=== PATIENT | female | born 1990 | race Caucasian/White ===

== ENCOUNTER 2020-11-07 05:38 | Day surgery (SDC) | payer OTHER, SELFPAY ==
--- NOTE | 2020-10-31 09:28 | HP.PCM_ITS ---
History and Physical Date of Admission: 11/14/20 HPI: The patient is a 30 year old female presenting for pre-operative visit. She is scheduled for laparoscopic bilateral salpingectomy, for sterilization on November 07, 2020. Procedure discussed along with risks, benefits and complications. Other alternatives discussed for management. Consent form signed? Yes. ? ? PAST MEDICAL HISTORY PAST MEDICAL HISTORY Diagnosis Date ? Anemia ? ? after previous delivery ? NEGATIVE MEDICAL HISTORY ? ? ? PAST SURGICAL HISTORY PAST SURGICAL HISTORY Procedure Laterality Date ? DELIVERY ONLY ? 2011 ? [place] ? DELIVERY ONLY ? 10/21/15 ? , low transverse ? ? ? CURRENT MEDICATIONS Current Outpatient Medications Medication Sig Dispense Refill ? buPROPion XL (WELLBUTRIN XL) 150 mg 24 hr tablet ? No current facility-administered medications for this visit. ? ? ALLERGIES: Patient has no known allergies. ? PERSONAL HISTORY: SOCIAL HISTORY Social History ? Tobacco Use ? Smoking status: Current Some Day Smoker ? ? Years: 5.00 ? ? Last attempt to quit: 03/13/2015 ? ? Years since quittin.6 ? Smokeless tobacco: Never Used Substance Use Topics ? Alcohol use: No ? Drug use: No ? FAMILY HISTORY: FAMILY HISTORY FAMILY HISTORY Family history unknown: Yes ? ? REVIEW OF SYMPTOMS: GENERAL: denies fevers or chills ENDOCRINOLOGY: has not been on steroids Cardiology : denies palpitations or chest pain Respiratory: denies SOB or cough Hematology: denies history of prolonged bleeding or easy bruising or VTE Allergy: Denies history of personal or family history of allergy to anesthesia ? PHYSICAL EXAMINATION: ? VITALS: Last menstrual period 09/30/2020. ? GENERAL: The patient is well nourished, well hydrated in no acute distress. , The patient is oriented to time, place, and person. HEART: Regular rate and rhythm, Normal heart sounds and No murmurs or gallops lungs ? IMPRESSION: sterilization request ? PLAN: The risks/benefits/alternatives and personal involved for the planned laparoscopic bilateral salpingectomy were reviewed with the patient. Her questions were answered to her satisfaction and she desires to proceed. Consent was signed. I reviewed with her postop instructions and expectations. ? Risks, benefits and alternatives to sterilization have been discussed with the patient. She declines reversible options including LARC. She understands sterilization is permanent, irreversible, risks of failure, regret and ectopic. In addition she understands there are surgical risks as well. Her questions were answered to her satisfaction and consent was signed ? ? HPI: The patient is a 30 year old female presenting for pre-operative visit. She is scheduled for laparoscopic bilateral salpingectomy, for sterilization on November 07, 2020. Procedure discussed along with risks, benefits and com plications. Other alternatives discussed for management. Consent form signed? Yes. ? ? PAST MEDICAL HISTORY PAST MEDICAL HISTORY Diagnosis Date ? Anemia ? ? after previous delivery ? NEGATIVE MEDICAL HISTORY ? ? ? PAST SURGICAL HISTORY PAST SURGICAL HISTORY Procedure Laterality Date ? DELIVERY ONLY ? 2011 ? [place] ? DELIVERY ONLY ? 10/21/15 ? , low transverse ? ? ? CURRENT MEDICATIONS Current Outpatient Medications Medication Sig Dispense Refill ? buPROPion XL (WELLBUTRIN XL) 150 mg 24 hr tablet ? No current facility-administered medications for this visit. ? ? ALLERGIES: Patient has no known allergies. ? PERSONAL HISTORY: SOCIAL HISTORY Social History ? Tobacco Use ? Smoking status: Current Some Day Smoker ? ? Years: 5.00 ? ? Last attempt to quit: 03/13/2015 ? ? Years since quittin.6 ? Smokeless tobacco: Never Used Substance Use Topics ? Alcohol use: No ? Drug use: No ? FAMILY HISTORY: FAMILY HISTORY FAMILY HISTORY Family history unknown: Yes ? ? REVIEW OF SYMPTOMS: GENERAL: denies fevers or chills ENDOCRINOLOGY: has not been on steroids Cardiology : denies palpitations or chest pain Respiratory: denies SOB or cough Hematology: denies history of prolonged bleeding or easy bruising or VTE Allergy: Denies history of personal or family history of allergy to anesthesia ? PHYSICAL EXAMINATION: ? VITALS: Last menstrual period 09/30/2020. ? GENERAL: The patient is well nourished, well hydrated in no acute distress. , The patient is oriented to time, place, and person. HEART: Regular rate and rhythm, Normal heart sounds and No murmurs or gallops lungs ? IMPRESSION: sterilization request ? PLAN: The risks/benefits/alternatives and personal involved for the planned laparoscopic bilateral salpingectomy were reviewed with the patient. Her questions were answered to her satisfaction and she desires to proceed. Consent was signed. I reviewed with her postop instructions and expectations. ? Risks, benefits and alternatives to sterilization have been discussed with the patient. She declines reversible options including LARC. She understands sterilization is permanent, irreversible, risks of failure, regret and ectopic. In addition she understands there are surgical risks as well. Her questions were answered to her satisfaction and consent was signed ? ? HPI: The patient is a 30 year old female presenting for pre-operative visit. She is scheduled for laparoscopic bilateral salpingectomy, for sterilization on November 07, 2020. Procedure discussed along with risks, benefits and complications. Other alternatives discussed for management. Consent form signed? Yes. ? ? PAST MEDICAL HISTORY PAST MEDICAL HISTORY Diagnosis Date ? Anemia ? ? after previous delivery ? NEGATIVE MEDICAL HISTORY ? ? ? PAST SURGICAL HISTORY PAST SURGICAL HISTORY Procedure Laterality Date ? DELIVERY ONLY ? 2011 ? [place] ? DELIVERY ONLY ? 10/21/15 ? , low transverse ? ? ? CURRENT MEDICATIONS Current Outpatient Medications Medication Sig Dispense Refill ? buPROPion XL (WELLBUTRIN XL) 150 mg 24 hr tablet ? No current facility-administered medications for this visit. ? ? ALLERGIES: Patient has no known allergies. ? PERSONAL HISTORY: SOCIAL HISTORY Social History ? Tobacco Use ? Smoking status: Current Some Day Smoker ? ? Years: 5.00 ? ? Last attempt to quit: 03/13/2015 ? ? Years since quittin.6 ? Smokeless tobacco: Never Used Substance Use Topics ? Alcohol use: No ? Drug use: No ? FAMILY HISTORY: FAMILY HISTORY FAMILY HISTORY Family history unknown: Yes ? ? REVIEW OF SYMPTOMS: GENERAL: denies fevers or chills ENDOCRINOLOGY: has not been on steroids Cardiology : denies palpitations or chest pain Respiratory: denies SOB or cough Hematology: denies history of prolonged bleeding or easy bruising or VTE Allergy: Denies history of personal or family history of allergy to anesthesia ? PHYSICAL EXAMINATION: ? VITALS: Last menstrual period 09/30/2020. ? GENERAL: The patient is well nourished, well hydrated in no acute distress. , The patient is oriented to time, place, and person. HEART: Regular rate and rhythm, Normal heart sounds and No murmurs or gallops lungs ? IMPRESSION: sterilization request ? PLAN: The risks/benefits/alternatives and personal involved for the planned laparoscopic bilateral salpingectomy were reviewed with the patient. Her questions were answered to her satisfaction and she desires to proceed. Consent was signed. I reviewed with her postop instructions and expectations. ? Risks, benefits and alternatives to sterilization have been discussed with the patient. She declines reversible options including LARC. She understands sterilization is permanent, irreversible, risks of failure, regret and ectopic. In addition she understands there are surgical risks as well. Her questions were answered to her satisfaction and consent was signed ? ? HPI: The patient is a 30 year old female presenting for pre-operative visit. She is scheduled for laparoscopic bilateral salpingectomy, for sterilization on November 07, 2020. Procedure discussed along with risks, benefits and complications. Other alternatives discussed for management. Consent form signed? Yes. ? ? PAST MEDICAL HISTORY PAST MEDICAL HISTORY Diagnosis Date ? Anemia ? ? after previous delivery ? NEGATIVE MEDICAL HISTORY ? ? ? PAST SURGICAL HISTORY PAST SURGICAL HISTORY Procedure Laterality Date ? DELIVERY ONLY ? 2011 ? [place] ? DELIVERY ONLY ? 10/21/15 ? , low transverse ? ? ? CURRENT MEDICATIONS Current Outpatient Medications Medication Sig Dispense Refill ? buPROPion XL (WELLBUTRIN XL) 150 mg 24 hr tablet ? No current facility-administered medications for this visit. ? ? ALLERGIES: Patient has no known allergies. ? PERSONAL HISTORY: SOCIAL HISTORY Social History ? Tobacco Use ? Smoking status: Current Some Day Smoker ? ? Years: 5.00 ? ? Last attempt to quit: 03/13/2015 ? ? Years since quittin.6 ? Smokeless tobacco: Never Used Substance Use Topics ? Alcohol use: No ? Drug use: No ? FAMILY HISTORY: FAMILY HISTORY FAMILY HISTORY Family history unknown: Yes ? ? REVIEW OF SYMPTOMS: GENERAL: denies fevers or chills ENDOCRINOLOGY: has not been on steroids Cardiology : denies palpitations or chest pain Respiratory: denies SOB or cough Hematology: denies history of prolonged bleeding or easy bruising or VTE Allergy: Denies history of personal or family history of allergy to anesthesia ? PHYSICAL EXAMINATION: ? VITALS: Last menstrual period 09/30/2020. ? GENERAL: The patient is well nourished, well hydrated in no acute distress. , The patient is oriented to time, place, and person. HEART: Regular rate and rhythm, Normal heart sounds and No murmurs or gallops lungs ? IMPRESSION: sterilization request ? PLAN: The risks/benefits/alternatives and personal involved for the planned laparoscopic bilateral salpingectomy were reviewed with the patient. Her questions were answered to her satisfaction and she desires to proceed. Consent was signed. I reviewed with her postop instructions and expectations. ? Risks, benefits and alternatives to sterilization have been discussed with the patient. She declines reversible options including LARC. She understands sterilization is permanent, irreversible, risks of failure, regret and ectopic. In addition she understands there are surgical risks as well. Her questions were answered to her satisfaction and consent was signed This HP was completed on 10/25/2020 in my office Assessment & Plan Assessment/Plan (1) Sterilization: PLAN: Plan bilateral salpingectomy, see above.
[2020-11-06 17:14] LABS: Hematocrit 42.6 % (37-47); Hemoglobin 13.5 g/dL (12.0-15.0); Mean Corp Hgb Conc 31.7 g/dL (32-36); Mean Corpuscular Hgb 31.1 pg (27.0-32.0); Mean Corpuscular Volume 98.2 fL (81-99); Mean Platelet Vol. 10.3 fl (6.2-12.0); Platelet Count 303 K/mm3 (150-450); RBC Distribution Width CV 13.5 % (11.6-14.6); RBC Distribution Width SD 49.5 fl (35.1-43.9); Red Blood Count 4.34 M/mm3 (4.2-5.4); White Blood Count 8.8 K/mm3 (4.4-11.0)
[2020-11-07 06:12] LABS: Internal QC Validated? YES +Cl - CLEAR BKGD; Pregnancy, Urine Negative Negative
[2020-11-07 06:19] VITALS: BP 122/75; PULSE 85; RESP 18; TEMP 36.5; O2SAT 100; BMI 24.9
[2020-11-07] MEDS: Acetaminophen 500 MG Tablet 1000 MG PO (06:35)
[2020-11-07] MEDS: Celecoxib 200 MG Capsule 400 MG PO (06:35)
[2020-11-07] MEDS: Lactated Ringers 1,000 ML 100 ML IV (06:37)
--- NOTE | 2020-11-07 07:30 | FALS_PTH ---
PATIENT: ROSE MARIE DREW [place] [facility] [place][id number] AGE/SX: 30/F ROOM: RE11/07/[address]: Dr. Marilyn Lancaster MD : 1990 BED: DIS: 11/07/2020 SPEC #: [id number] RECD: 11/07/20 10:37 STATUS: HONG REPatricia #: [id number] TIARA: 11/07/20 07:[address]: Marilyn Lancaster DEPT: SURGICAL PATHOLOGY RECD BY: Asia Negron ENTERED: 11/07/20 11:27 SP TYPE: FALL TUBES OTHR DR: Dr. Kieran Brock MD Tissues: Fallopian tube Procedures: Surgery Specimen Level II HEADER OPERATION: Laparoscopic salpingectomy PRE-OP DIAGNOSIS: Sterilization TISSUE SUBMITTED: Bilateral fallopian tubes MICROSCOPIC DIAGNOSIS Bilateral fallopian tubes, salpingectomy: Bilateral fallopian tubes, no pathologic diagnosis. SJ:dasia 11/08/2020 MICROSCOPIC DESCRIPTION Slides are reviewed. GROSS DESCRIPTION Received in fixative is one container labeled with the patient's name and designated bilateral fallopian tubes. The specimen consists of bilateral fallopian tubes with one of the fallopian tubes not showing fimbrial end. The fallopian tube without fimbrial end 5 cm in length and 0.4 cm in diameter and the fallopian tube with fimbrial end measures 4.5 cm in length and 0.5 cm in diameter. The fallopian tubes are not identified as right or left. Sections reveal unremarkable cut surfaces. Sections do not reveal any mass lesion. Property Worker sections are submitted in two cassettes as follows: 1 ? fallopian tube without fimbrial end, 2 - fallopian tube with fimbrial end. / SJ:rg 11/07/20 TC:4 [facility]: [id number] x2
[2020-11-07] MEDS: Lubricating Jelly 60 GM Tube 30 GM TOPICAL (07:40)
[2020-11-07] MEDS: Bupivacaine Mpf 0.5% 30 ML VIAL (07:50)
--- NOTE | 2020-11-07 08:06 | OP.PCM_ITS ---
Problems Associated Problem List Diagnoses (1) Sterilization: Report of Operation Date of Procedure: 11/07/20 Pre-Operative Diagnosis: Sterilization request Post-Operative Diagnosis: same Surgery/Procedure Performed:: Laparoscopic bilateral salpingectomy Description of Surgical Findings:: Normal cervix, vagina, uterus tubes and ovaries community relations manager: None Type of Anesthesia: General/Supplemental Anesthesiologist: Master Katz Special Medications: none Specimen's removed: biliateral fallopian tubes Drains: none Estimated Blood Loss (mL): 5 Fluids Replaced: 1000 mL Description of Procedure: The patient was taken to the operating room where she was prepped and draped in the dorsolithotomy position. A weighted speculum was placed in the vagina and the anterior lip of the cervix was grasped with a tenaculum. The Cortney uterine manipulator was placed and the remainder of the instruments were removed from the vagina. Attention was turned to the abdomen. All port sites were infiltrated with 0.5% Marcaine before skin incisions were made. A 5 mm [intraumbilical] incision was made. The anterior abdominal wall was tented up with 2 towel clamps while a 5 mm blade less trocar and sleeve were [directly inserted]. Intraperitoneal placement was confirmed with the laparoscope. The pneumoperitoneum was created and the underlying abdominal contents were intact. The patient was placed in Trendelenburg. Right and left lower quadrant ports were placed under direct visualization lateral to the inferior epigastric vessels. The bowel was swept away and the above findings were noted. The LigaSure device was used to clamp seal and transect the antimesenteric portions of the right tube to the cornual insertion of the uterus. The tube was amputated from the uterus and the pedicles were all confirmed to be hemostatic. The same procedure was performed on the contralateral side. The specimens were brought out through a 5 mm port. The pedicles were again examined and found to be hemostatic. The lateral ports were removed under direct visualization and no active bleeding was noted. The pneumoperitoneum was released. The skin incisions were closed with Monocryl suture in a subcuticular fashion and skin glue . The vaginal instruments were removed and the vaginal sweep was completed by me. The entire procedure was performed by me.. All sponge and needle counts were correct and the patient was taken to the recovery room in stable condition. Start time [id number] Stop [id number] Grafts/Implants Used: none Complications none Admit VTE Documentation VTE Present on Admission: No VTE Mechan Device Prophylaxis: SCD's VTE Pharm Prophylaxis ordered?: No Reason prophylaxis not ordered:: Procedure Not Indicated
--- NOTE | 2020-11-07 08:10 | PCM.DC ---
Discharge Instructions Diet Discharge Diet: No restrictions (Increase fluid intake for the next 48 hours.) Activity Discharge Activity: Return to Normal Activity, May Drive (when you are no longer taking pain/narcotic meds.), May Shower and May Take a Tub Bath (in 7 days.) Additional Activity Instructions:: Ambulate often the next week after surgery. Nothing in the vagina for 5 days. Dressing / Incision Call your doctor if your incision/area has: Continuous Slow Oozing, Sudden Increased Bleeding, Increased Pain/ Swelling, Increased Redness and Foul Smelling Discharge Call your doctor if you observe: Fever of 101 or Higher Cleanse incision/area with: Soap & Water Follow Up Care Please Follow Up With: Marilyn Lancaster MD When: Call [phone] for follow-up appointment. Test Results: Test results from this visit will be discussed in further detail at your follow-up appointment, if applicable. Discharge Plan Admission Attending Provider: Marilyn Lancaster Primary Care Provider: Kieran Brock Discharge Orders/Prescriptions Prescriptions: New ibuprofen [ibuprofen] 600 MG tablet 600 mg PO Q6H PRN (Reason: Pain) Qty: 30 RF: 1 acetaminophen [Acetaminophen Extra Strength] 500 mg tablet 1,000 mg PO Q6H PRN (Reason: fever or pain) Qty: 30 RF: 0 Continued bupropion HCl 300 mg Tablet Extended Release 24 Hr 300 mg PO DAILY RF: 0 Referrals / Follow Up: Kieran Brock MD [Primary Care Provider] - Disposition Discharge Orders: Discharge Patient (Routine); Ordered 11/07/20 Ordered By: Dr. Marilyn Lancaster
[2020-11-07] MEDS: Lactated Ringers 1,000 ML 75 ML IV (08:20)
[2020-11-07 08:24] VITALS: BP 118/62; BP 122/75; PULSE 58; RESP 14; TEMP 36.2; O2SAT 100
[2020-11-07 08:30] VITALS: BP 116/76; BP 122/75; PULSE 59; RESP 14; O2SAT 100
[2020-11-07 08:45] VITALS: BP 116/71; BP 122/75; PULSE 63; RESP 16; O2SAT 100
[2020-11-07 09:01] VITALS: BP 120/79; BP 122/75; PULSE 59; RESP 16; TEMP 36.7; O2SAT 100
[2020-11-07 09:35] VITALS: BP 118/76; BP 122/75; PULSE 62; RESP 16; TEMP 36.8; O2SAT 100
== END 2020-11-07 09:44 | disposition home or self-care (01) ==
LOC: SDC 05:38 → AC 05:39
PROVIDERS: Referring Provider Obstetrics & Gynecology; Visit Provider Obstetrics & Gynecology
PROC: (CPT 58661; principal; 2020-11-07 07:15)
DX: Z30.2 Encounter for sterilization (principal); F17.200 Nicotine dependence, unspecified, uncomplicated; Z20.822 Contact with and (suspected) exposure to COVID-19
CPT/HCPCS: 00840; 58661; 36415; 81025; 85027; 87426; 88302; C9803; J7120; J2405